=== PATIENT | female | born 1970 | race Hispanic/Latino ===

== ENCOUNTER 2021-12-26 14:44 | Emergency (ER) | payer SELFPAY ==
[~2021-12-26] VITALS: Ht 162.6 cm; Wt 68.0 kg
[2021-12-26] MEDS ORDERED: KETOROLAC TROMETHAMINE 60 MG/2 ML VIAL IM ONE (15:30)
[2021-12-26 16:40] VITALS: BP 130/74
== END 2021-12-26 16:40 | disposition home or self-care (01) ==
LOC: ER 15:26
DX: M25.562 Pain in left knee (principal); M79.18 Myalgia, other site
CPT/HCPCS: 73552; 73562; 99283; J1885